=== PATIENT | female | born 1950 | race Caucasian/White ===

== ENCOUNTER 2024-10-03 06:45 | Day surgery (SDC) | payer MEDICARE, BC ==
[2024-10-03] MEDS ORDERED: Bupivacaine 0.5%/EPINEPHrine 1:200,000 50 ML MDV ONE (07:09)
[2024-10-03 07:10] LABS: HEMATOCRIT 39.8 % (34.3-46.0); HEMOGLOBIN 13.2 g/dL (11.2-15.5); MEAN CORPUSCULAR HEMOGLOBIN 32.8 pg (31.6-35.5); MEAN CORPUSCULAR HGB CONC 33.2 g/dL (31.6-35.5); MEAN CORPUSCULAR VOLUME 98.8 fL (81.4-99.0); RED BLOOD CELL COUNT 4.03 M/uL (3.77-5.24); WHITE BLOOD CELL COUNT,WBC 5.6 K/uL (3.2-11.0)
[2024-10-03] MEDS ORDERED: fentaNYL 250 MCG/5 ML SDV ONE (07:16)
[2024-10-03] MEDS ORDERED: Ondansetron 4 MG/2 ML SDV ONE (07:17)
[2024-10-03] MEDS ORDERED: Glycopyrrolate 0.2 MG/ML 5 ML MDV ONE (07:17)
[2024-10-03] MEDS ORDERED: Succinylcholine 200 MG/10 ML MDV ONE (07:17)
[2024-10-03] MEDS ORDERED: Dexamethasone 4 MG/ML SDV ONE (07:17)
[2024-10-03] MEDS ORDERED: Neostigmine Methylsulfate 10 MG/10 ML MDV ONE (07:17)
[2024-10-03] MEDS ORDERED: Rocuronium 50 MG/5 ML Vial ONE (07:17)
[2024-10-03] MEDS ORDERED: Propofol 200 MG/20 ML SDV ONE (07:17)
[2024-10-03 07:32] LABS: A/G RATIO 1.3 (1.2-2.2); ALANINE AMINOTRANSFERASE,ALT 21 U/L (12-78); ALKALINE PHOSPHATASE 66 U/L (46-116); ANION GAP 10.7 mmol/L (5.0-14.0); ASPARTATE AMNIOTRANSFERASE,AST 21 U/L (15-37); BILIRUBIN TOTAL 0.7 mg/dL (0.2-1.0); BLOOD UREA NITROGEN,BUN 14 mg/dL (7-18); CALCIUM 9.2 mg/dL (8.5-10.1); CARBON DIOXIDE,CO2 27 mmol/L (21-32); CHLORIDE,CL 103 mmol/L (100-108); CREATININE 0.8 mg/dL (0.6-1.0); EST CRCL DRUG DOSING (CG) 47.26 mL/min; ESTIMATED GFR 78 mL/min (>60); GLUCOSE RANDOM 98 mg/dL (74-106); POTASSIUM,K 3.7 mmol/L (3.6-5.2); PROTEIN TOTAL,TP 7.2 g/dL (6.4-8.2); SODIUM,NA 141 mmol/L (140-148)
[2024-10-03] MEDS ORDERED: Sodium Chloride 0.9% 50 ML SDV ONE (07:33)
[2024-10-03] MEDS: ceFAZolin 2 GM in Premix Bag 1 BAG IV ONE (07:35)
[2024-10-03] MEDS: Lactated Ringers 1,000 ML IV SCH (07:49)
[2024-10-03] MEDS: Bupivacaine 0.25%/EPINEPHrine 1:200,000 30 ML SDV ONE (08:45)
[2024-10-03] MEDS: Bupivacaine 0.5% 50 ML MDV ONE (08:46)
[2024-10-03] MEDS ORDERED: Lactated Ringers 1,000 ML ONE (09:08)
[2024-10-03] MEDS: oxyCODONE 5 MG Tab PO ONE (10:32)
== END 2024-10-03 12:57 | disposition home or self-care (01) ==
LOC: JP.SDS 06:45
PROVIDERS: ATTEND Surgery
DX: K40.90 Unilateral inguinal hernia, without obstruction or gangrene, not specified as recurrent (principal); G30.9 Alzheimer's disease, unspecified; F02.80 Dementia in other diseases classified elsewhere, unspecified severity, without behavioral disturbance, psychotic disturbance, mood disturbance, and anxiety
CPT/HCPCS: 36415; 49650; 80053; 85027; A9270; C1781; J0330; J0690; J1100; J1596; J2405; J2704; J2710; J3010; J7120; 00750-QZ; J0665; J3490